=== PATIENT | female | born 1990 | race Caucasian/White ===

== ENCOUNTER 2020-06-02 19:28 | Inpatient (IN) | payer OTHER ==
[~2020-06-02] VITALS: Ht 165.1 cm; Wt 55.2 kg
[2020-06-02] MEDS ORDERED: SODIUM CHLORIDE 0.9% 1,000ML IVBOLUS ONE (20:30)
[2020-06-02] MEDS ORDERED: SODIUM CHLORIDE FLUSH 10ML SYR IVF ONE (20:30)
[2020-06-02] MEDS ORDERED: MORPHINE SULFATE 4 MG/ML, 1ML IVPush PRN ×2 (20:30→22:30)
[2020-06-02] MEDS ORDERED: ONDANSETRON 2MG/ML, 2ML IVPush ONE (20:30)
[2020-06-02] MEDS ORDERED: MORPHINE SULFATE 4 MG/ML, 1ML ONE (20:39)
[2020-06-02] MEDS ORDERED: ONDANSETRON 2MG/ML, 2ML ONE (20:39)
[2020-06-02 20:50] LABS: MEAN CORPUSCULAR HEMOGLOBIN 31.9 pg (27.0-34.8); MEAN CORPUSCULAR HGB CONC 34.1 g/dL (32.4-35.8); MEAN PLATELET VOLUME 9.4 fL (7.4-10.4); PLATELET COUNT 187 x10^3/uL (130-400); RED BLOOD COUNT 3.67 x10^6/uL (3.82-5.3); RED CELL DISTRIBUTION WIDTH 12.6 % (9.6-15.2)
[2020-06-02 20:54] LABS: MD YES
[2020-06-02 20:55] LABS: ALANINE AMINOTRANSFERASE 21 U/L (12-78); ALBUMIN 3.8 g/dL (3.4-5.0); ANION GAP 5 mmol/L (5-15); CALCIUM 8.6 mg/dL (8.5-10.1); CHLORIDE 107 mmol/L (98-107); CREATININE 0.76 mg/dL (0.55-1.02)
[2020-06-02 20:57] LABS: MICROSCOPIC INDICATED
[2020-06-02 20:58] LABS: ALKALINE PHOSPHATASE 54 U/L (45-117)
[2020-06-02 21:22] LABS: <RBC MORPHOLOGY> NORMAL; BAND#(MANUAL) 0.19 x10^3/uL; BANDS%(MANUAL) 1 % (0-7); BASOS#(MANUAL) 0.19 x10^3/uL (0-0.1); BASOS% (MANUAL) 1 % (0-1); LYMPH#(MANUAL) 1.32 x10^3/uL (1-3.4); LYMPHS% (MANUAL) 7 % (22-44); MONOS#(MANUAL) 0.76 x10^3/uL (0.3-2.7); MONOS% (MANUAL) 4 % (2-9); SEG#(MANUAL) 16.44 x10^3/uL (1.8-6.8); SEGS% (MANUAL) 87 % (42-75)
--- NOTE | 2020-06-02 21:22 | NUR ---
REPORT RECEIVED FROM FLO CASTANEDA. PT TO IMAGING
[2020-06-02 21:23] LABS: <PLATELET ESTIMATE> ADEQUATE; <PLT MORPHOLOGY> NORMAL PLT MORPH
[2020-06-02] MEDS ORDERED: OMNIPAQUE 350 MG/ML, 100ML BOTTLE ONE (21:30)
[2020-06-02] MEDS ORDERED: CEFTRIAXONE PMX 1GM/50ML 50 ML IV ONE (22:00)
[2020-06-02] MEDS ORDERED: SODIUM CHLORIDE 0.9% 1,000 ML IV ONE (22:30)
[2020-06-02] MEDS ORDERED: ONDANSETRON 2MG/ML, 2ML IVPush PRN ×2 (22:30→23:00)
--- NOTE | 2020-06-02 22:33 | NUR ---
BLOOD CULTURES DONE BEFORE ABX ADMIN
[2020-06-02] MEDS ORDERED: CEFTRIAXONE PMX 1GM/50ML 50 ML ONE (22:35)
--- NOTE | 2020-06-02 22:35 | NUR ---
[facility] AT BEDSIDE
[2020-06-02] MEDS ORDERED: morphine SULFATE 10 MG/ML, 1ML IVPush PRN (23:00)
[2020-06-02] MEDS ORDERED: ACETAMINOPHEN 325 MG TABLET PO PRN (23:00)
[2020-06-02] MEDS ORDERED: CEFTRIAXONE PMX 1GM/50ML 50 ML IV SCH (23:00)
[2020-06-02] MEDS ORDERED: BISACODYL 10 MG SUPP PR PRN (23:00)
--- NOTE | 2020-06-02 23:02 | NUR ---
REPORT GIVEN TO MADDY CASTANEDA
[2020-06-02 23:11] LABS: INTERNATIONAL NORMALIZED RATIO 1.07 (0.93-1.1); PROTHROMBIN TIME 11.3 Seconds (9.6-11.5)
[2020-06-02 23:49] VITALS: BP 122/72
[2020-06-02] MEDS: SODIUM CHLORIDE 0.9% 1,000 ML IV SCH (23:54)
[2020-06-03] MEDS ORDERED: NAPR-816 PO (00:21)
[2020-06-03] MEDS ORDERED: DULO30CA44 PO (00:21)
[2020-06-03] MEDS ORDERED: [UNRECOGNIZED DRUG - CODE] PO (00:21)
[2020-06-03 00:54] VITALS: BP 100/55
[2020-06-03 06:17] LABS: BASOPHILS % (AUTO) 0 % (0-1); EOSINOPHILS % (AUTO) 0 % (1-7); LYMPHOCYTES % (AUTO) 15 % (22-44); MEAN CORPUSCULAR HEMOGLOBIN 32.5 pg (27.0-34.8); MEAN CORPUSCULAR HGB CONC 34.8 g/dL (32.4-35.8); MEAN PLATELET VOLUME 9.6 fL (7.4-10.4); MONOCYTES % (AUTO) 4 % (2-9); NEUTROPHILS % (AUTO) 81 % (42-75); PLATELET COUNT 168 x10^3/uL (130-400); RED CELL DISTRIBUTION WIDTH 12.7 % (9.6-15.2)
[2020-06-03 06:24] LABS: ANION GAP 7 mmol/L (5-15); CALCIUM 8.3 mg/dL (8.5-10.1); CHLORIDE 109 mmol/L (98-107); CREATININE 0.66 mg/dL (0.55-1.02)
[2020-06-03 06:45] LABS: MD SCAN
[2020-06-03 06:49] VITALS: BP 103/65
[2020-06-03] MEDS ORDERED: LIDOCAINE 1%, 10ML ONE (09:45)
[2020-06-03] MEDS: SODIUM CHLORIDE 0.9% 1,000 ML IV SCH (11:07)
[2020-06-03 12:47] VITALS: BP 100/63
== END 2020-06-03 13:45 | disposition home or self-care (01) | DRG 760 ==
LOC: ED 22:44 → EDIP 23:04 → 3N 23:25 → DCLOUNGE 06-03 13:40
PROVIDERS: ADMIT Internal Medicine; ATTEND Hospitalist
PROC: 0W9G3ZZ Drainage of Peritoneal Cavity, Percutaneous Approach (ICD-10-PCS; principal; 2020-06-03)
DX: N83.201 Unspecified ovarian cyst, right side (principal); R65.10 Systemic inflammatory response syndrome (SIRS) of non-infectious origin without acute organ dysfunction; F10.10 Alcohol abuse, uncomplicated; G62.1 Alcoholic polyneuropathy; D72.829 Elevated white blood cell count, unspecified; E06.3 Autoimmune thyroiditis; F12.90 Cannabis use, unspecified, uncomplicated; F41.9 Anxiety disorder, unspecified; Z87.11 Personal history of peptic ulcer disease; Z88.0 Allergy status to penicillin; Z88.8 Allergy status to other drugs, medicaments and biological substances
CPT/HCPCS: 36415; 49083; 74177; 80048; 80053; 81001; 83690; 84703; 85025; 85610; 87040; 87086; G0378; J0696; J2405; Q9967; J2270; J7030